=== PATIENT | female | born 1955 | race Caucasian/White ===

== ENCOUNTER → 2022-05-30 07:55 | Outpatient (BNVA) | payer MEDICARE, MEDICAID, SELFPAY | PROVIDERS: PCP Nurse Practitioner Family; Visit Provider Nurse Practitioner Family | DX: R06.83 Snoring (principal); R40.0 Somnolence; I10 Essential (primary) hypertension; G25.81 Restless legs syndrome; G47.62 Sleep related leg cramps; G47.10 Hypersomnia, unspecified; G47.11 Idiopathic hypersomnia with long sleep time | CPT/HCPCS: 99202 ==

== ENCOUNTER → 2022-07-15 19:04 | Outpatient (REF) | payer MEDICARE, MEDICAID, SELFPAY | LOC: HO.SL 19:04 | PROVIDERS: Visit Provider Nurse Practitioner Family | DX: R06.83 Snoring (principal); R40.0 Somnolence; G25.81 Restless legs syndrome; G47.62 Sleep related leg cramps; G47.10 Hypersomnia, unspecified; G47.11 Idiopathic hypersomnia with long sleep time; I10 Essential (primary) hypertension | CPT/HCPCS: 95810 ==

== ENCOUNTER → 2022-08-23 08:37 | Outpatient (BNVA) | payer MEDICARE, MEDICAID, SELFPAY | PROVIDERS: Visit Provider Nurse Practitioner Family | DX: G47.33 Obstructive sleep apnea (adult) (pediatric) (principal); R06.83 Snoring; G25.81 Restless legs syndrome; E66.9 Obesity, unspecified; Z68.35 Body mass index [BMI] 35.0-35.9, adult | CPT/HCPCS: 99212 ==